=== PATIENT | female | born 1960 | race Two or more races ===

== ENCOUNTER 2022-01-22 12:06 | Emergency (ER) | payer OTHER ==
[~2022-01-22] VITALS: Ht 162.6 cm; Wt 90.8 kg
[2022-01-22] MEDS ORDERED: ACET-1158 PO (13:33)
[2022-01-22] MEDS ORDERED: CYCL-837 PO (13:33)
[2022-01-22] MEDS ORDERED: KETOROLAC TROMETH 60MG/2ML VIAL IM ONE (13:45)
[2022-01-22 14:00] VITALS: BP 111/72
== END 2022-01-22 14:09 | disposition home or self-care (01) ==
LOC: ER 12:06
DX: S16.1XXA Strain of muscle, fascia and tendon at neck level, initial encounter (principal); E78.5 Hyperlipidemia, unspecified; Z90.710 Acquired absence of both cervix and uterus; X58.XXXA Exposure to other specified factors, initial encounter; Y93.89 Activity, other specified; Y92.89 Other specified places as the place of occurrence of the external cause; Y99.8 Other external cause status
CPT/HCPCS: 72125; 96372; 99284; J1885

== ENCOUNTER 2022-06-27 08:46 | Emergency (ER) | payer OTHER ==
[~2022-06-27] VITALS: Ht 162.6 cm; Wt 86.5 kg
[~2022-06-27 08:46] MED LIST: ACET-1158 PO; CYCL-837 PO
[2022-06-27 08:56] VITALS: BP 146/71
[2022-06-27] MEDS ORDERED: KETOROLAC TROMETH 60MG/2ML VIAL IM ONE (09:30)
[2022-06-27] MEDS ORDERED: HYDR2.5C39 TOP (09:58)
[2022-06-27] MEDS ORDERED: IBUP800T27 PO (09:58)
[2022-06-27] MEDS ORDERED: DOCU-94 PO (09:58)
== END 2022-06-27 10:17 | disposition home or self-care (01) ==
LOC: ER 08:46
DX: K64.4 Residual hemorrhoidal skin tags (principal); E78.5 Hyperlipidemia, unspecified; Z90.710 Acquired absence of both cervix and uterus; Z79.899 Other long term (current) drug therapy
CPT/HCPCS: 96372; 99283; J1885

== ENCOUNTER 2022-07-10 17:47 | Inpatient (IN) | payer OTHER ==
[~2022-07-10] VITALS: Ht 162.6 cm; Wt 82.0 kg
[~2022-07-10 17:47] MED LIST changes: +DOCU-94 PO; +HYDR2.5C39 TOP; +IBUP800T27 PO
[2022-07-10 19:02] LABS: Basophils # (auto) 0 10 ^3/uL (0-0.2); Basophils % (auto) 0.4 % (0.0-2.0); Eosinophils # (auto) 0.4 10 ^3/uL (0-0.8); Eosinophils % (auto) 4.9 % (0.0-7.0); Hemoglobin 12.8 g/dL (12.2-16.2); Lymphocytes # (auto) 1.8 10 ^3/uL (0.4-5.4); Lymphocytes % (auto) 24.7 % (10.0-50.0); Mean Corpuscular Hemoglobin 29.8 pg (28.0-32.0); Mean Corpuscular Hgb Conc. 32.9 g/dL (32.0-36.0); Mean Corpuscular Volume 90.5 fL (80.0-100.0); Monocytes # (auto) 0.5 10 ^3/uL (0-1.3); Monocytes % (auto) 6.3 % (0.0-12.0); Neutrophils # (auto) 4.7 10 ^3/uL (1.6-8.6); Neutrophils % (auto) 63.7 % (37.0-80.0); Red Blood Cells 4.31 10^6/uL (4.0-5.20); Red Cell Distribution Width 15.4 % (11.8-14.3); White Blood Cell 7.3 10^3/uL (4.4-10.8)
[2022-07-10 19:22] LABS: Albumin 3.1 g/dL (3.4-5.0); Calcium 8.1 mg/dL (8.5-10.1); Potassium 3.8 mmol/L (3.5-5.1)
[2022-07-10 19:34] LABS: BUN/Creatinine Ratio 14.8; CRP High Sensitivity 5.71 mg/dL (< 0.3); Total Protein 6.8 g/dL (6.4-8.2)
[2022-07-10 20:24] LABS: Urine Bacteria FEW /hpf (None Seen); Urine Blood TRACE /uL (Negative); Urine Specific Gravity 1.024 (1.001-1.035); Urine WBC 3 /hpf (0 - 5)
[2022-07-10] MEDS ORDERED: IPRATROPIUM BROM 0.5 MG/2.5ML INH SOL NEB ONE (20:45)
[2022-07-10] MEDS ORDERED: DexAMETHasone SOD PHOS 10MG/1ML VIAL INJ IM ONE (20:45)
[2022-07-10] MEDS ORDERED: ALBUTEROL SULF 2.5 MG/0.5ML(0.5%) NEB SOLN NEB ONE (20:45)
[2022-07-10] MEDS ORDERED: ACETAMINOPHEN 325 MG TAB PO PRN (21:45)
[2022-07-10] MEDS ORDERED: NITROGLYCERIN 0.4 MG SL TAB SL PRN (21:45)
[2022-07-10] MEDS ORDERED: HYDROcodone-ACET 5/325MG TAB PO PRN (21:45)
[2022-07-10] MEDS ORDERED: MORPHINE SULFATE INJ 2 MG/ml SYRG IV PRN ×2 (21:45)
[2022-07-10] MEDS ORDERED: AZITHROMYCIN 500MG/ 250ML 250 ML IV ONE (22:00)
[2022-07-10] MEDS ORDERED: ALBUTEROL SULF 2.5 MG/0.5ML(0.5%) NEB SOLN NEB PRN (22:00)
[2022-07-10] MEDS ORDERED: cefTRIAXone 1GM/50ML D5W 50 ML IV ONE (22:00)
[2022-07-10] MEDS ORDERED: PANTOPRAZOLE 40 MG/10 ML VIAL INJ IV ONE (22:00)
[2022-07-10] MEDS ORDERED: IPRATROPIUM BROM 0.5 MG/2.5ML INH SOL NEB PRN (22:00)
[2022-07-10 22:08] VITALS: BP 159/81
[2022-07-10] MEDS ORDERED: IOHEXOL 350 MG/ML 100ML IJ ONE (22:10)
[2022-07-10 22:13] LABS: Amylase 37 U/L (25-115); Lipase 142 U/L (73-393)
[2022-07-10] MEDS ORDERED: hydrALAZINE HCL 20 MG/ML VL IV PRN (22:15)
[2022-07-10 22:18] LABS: Blood Alcohol < 3.0 mg/dL (0-5); Cholesterol 173 mg/dL (< 200); HDL Cholesterol 46 mg/dL (40-59); LDL Cholesterol 101 mg/dL (< 100); Triglycerides 151 mg/dL (< 150)
[2022-07-10 22:25] LABS: INR 0.97 (0.9-1.15); Partial Thromboplastin Time 31.3 sec (24.6-33.4)
[2022-07-10] MEDS ORDERED: DexAMETHasone SOD PHOS 10MG/1ML VIAL INJ IV ONE (23:15)
[2022-07-11] MEDS: ALBUTEROL SULF 2.5 MG/0.5ML(0.5%) NEB SOLN NEB SCH ×3 (00:27→11:44)
[2022-07-11] MEDS: IPRATROPIUM BROM 0.5 MG/2.5ML INH SOL NEB SCH ×3 (00:27→11:44)
[2022-07-11 05:31] LABS: Basophils # (auto) 0 10 ^3/uL (0-0.2); Basophils % (auto) 0.2 % (0.0-2.0); Eosinophils # (auto) 0 10 ^3/uL (0-0.8); Eosinophils % (auto) 0.4 % (0.0-7.0); Hematocrit 37.2 % (36.0-46.0); Hemoglobin 12.4 g/dL (12.2-16.2); Lymphocytes # (auto) 1.1 10 ^3/uL (0.4-5.4); Mean Corpuscular Hemoglobin 30.7 pg (28.0-32.0); Mean Corpuscular Hgb Conc. 33.4 g/dL (32.0-36.0); Mean Corpuscular Volume 92.1 fL (80.0-100.0); Monocytes # (auto) 0.1 10 ^3/uL (0-1.3); Monocytes % (auto) 1.8 % (0.0-12.0); Neutrophils # (auto) 5.7 10 ^3/uL (1.6-8.6); Neutrophils % (auto) 81.6 % (37.0-80.0); Nucleated Red Blood Cells % 0.1 %; Red Blood Cells 4.04 10^6/uL (4.0-5.20); Red Cell Distribution Width 15.6 % (11.8-14.3)
[2022-07-11 05:45] LABS: Potassium 3.7 mmol/L (3.5-5.1)
[2022-07-11 05:50] LABS: Albumin 3.1 g/dL (3.4-5.0); BUN/Creatinine Ratio 12.9; Bilirubin, Total 0.5 mg/dL (0.2-1.0); Calcium 8.6 mg/dL (8.5-10.1); Total Protein 7.7 g/dL (6.4-8.2)
[2022-07-11] MEDS ORDERED: cefTRIAXone 1GM/50ML D5W 50 ML IV SCH (09:00)
[2022-07-11 09:20] LABS: Hepatitis B Surface Antibody Negative (Negative)
[2022-07-11 09:58] LABS: Hepatitis A Total Antibody Negative (Negative)
[2022-07-11] MEDS ORDERED: PANTOPRAZOLE 40 MG/10 ML VIAL INJ IV SCH (10:00)
[2022-07-11] MEDS ORDERED: NICOTINE 7MG/24HR TOPICAL PATCH TD SCH (10:00)
[2022-07-11] MEDS ORDERED: ENOXAPARIN SOD 40 MG/0.4 ML SYRINGE SC SCH (10:00)
[2022-07-11] MEDS ORDERED: AZITHROMYCIN 500MG/ 250ML 250 ML IV SCH (10:00)
[2022-07-11 11:00] VITALS: BP 124/59
[2022-07-11 12:09] LABS: Hepatitis C Antibody Negative (Negative)
[2022-07-11] MEDS ORDERED: DOXY-332 PO (14:05)
[2022-07-11] MEDS ORDERED: ALBUAER3 IN (14:05)
== END 2022-07-11 14:41 | disposition home or self-care (01) | DRG 179 ==
LOC: ER 17:47 → TELE 21:50
PROVIDERS: ADMIT Registered Nurse; ATTEND Nurse Practitioner Acute Care
DX: J15.6 Pneumonia due to other Gram-negative bacteria (principal); E66.01 Morbid (severe) obesity due to excess calories; E78.5 Hyperlipidemia, unspecified; F17.200 Nicotine dependence, unspecified, uncomplicated; I10 Essential (primary) hypertension; R74.01 Elevation of levels of liver transaminase levels; R74.8 Abnormal levels of other serum enzymes; Z20.822 Contact with and (suspected) exposure to COVID-19; F10.90 Alcohol use, unspecified, uncomplicated; R79.89 Other specified abnormal findings of blood chemistry; J15.9 Unspecified bacterial pneumonia; R94.31 Abnormal electrocardiogram [ECG] [EKG]; Z90.710 Acquired absence of both cervix and uterus; Z71.6 Tobacco abuse counseling; Z71.3 Dietary counseling and surveillance; Z68.31 Body mass index [BMI] 31.0-31.9, adult
CPT/HCPCS: 36415; 71045; 71275; 76705; 80053; 80061; 80320; 81001; 82150; 82977; 83036; 83605; 83690; 83880; 84443; 84484; 85025; 85379; 85610; 85730; 86141; 86704; 86706; 86708; 86803; 87040; 87340; 87426; 87804; 93005; 93306; 94640; 96365; 96366; 96368; 96372; 96375; 96376; C9113; G0378; J0696; J1100

== ENCOUNTER 2024-11-08 06:53 | Outpatient (CLI) | payer OTHER ==
[~2024-11-08 06:53] MED LIST changes: -ACET-1158 PO; +ACET500T58 PO; +ALBUAER3 IN; +DOXY100C79 PO; +IBUP-1456 PO; -IBUP800T27 PO
[2024-11-08 07:40] LABS: Urine Protein, UAD Negative (Negative); Urine WBC Clumps PRESENT /hpf (None Seen)
[2024-11-08 07:43] LABS: Hematocrit 42.1 % (36.0-46.0); Hemoglobin 14.0 g/dL (12.2-16.2); Mean Corpuscular Hemoglobin 30.3 pg (28.0-32.0); Mean Corpuscular Volume 91.0 fL (80.0-100.0); Nucleated Red Blood Cells % 0.0 %
[2024-11-08 07:56] LABS: Alanine Aminotransferase 18 U/L (7-40); Albumin 4.3 g/dL (3.2-4.8); Alkaline Phosphatase 68 U/L (46-116); Anion Gap 10 (5-15); BUN/Creatinine Ratio 16.1 (10.0-20.0); Blood Urea Nitrogen 15 mg/dL (9-23); Calcium 10.0 mg/dL (8.7-10.4); Carbon Dioxide 27 mmol/L (20-31); Chloride 106 mmol/L (98-107); Glucose 97 mg/dL (74-106); Magnesium 1.9 mg/dL (1.6-2.6); Potassium 4.4 mmol/L (3.5-5.1); Sodium 143 mmol/L (136-145); Total Protein 7.2 g/dL (5.7-8.2)
[2024-11-08 07:57] LABS: Bilirubin, Total 0.6 mg/dL (0.2-1.0); HDL Cholesterol 50 mg/dL (40-59)
[2024-11-08 08:00] LABS: Cholesterol 222 mg/dL (< 200); Triglycerides 205 mg/dL (< 150)
[2024-11-08 08:47] LABS: Microalb/Creat Ratio, Urine 10.0
== END 2024-11-08 17:00 | disposition home or self-care (01) ==
LOC: LAB 06:53
PROVIDERS: ATTEND Internal Medicine
DX: E55.9 Vitamin D deficiency, unspecified (principal); R73.03 Prediabetes; Z00.00 Encounter for general adult medical examination without abnormal findings
CPT/HCPCS: 36415; 80053; 80061; 81001; 82043; 82306; 82570; 82607; 83036; 83735; 84443; 85025

== ENCOUNTER → 2024-11-12 | Outpatient (CLI) | payer OTHER ==
[2024-11-12 16:10] LABS: Urine Protein, UAD Negative (Negative)
== END | disposition home or self-care (01) ==
LOC: LAB 15:55
PROVIDERS: ATTEND Urology
DX: R32 Unspecified urinary incontinence (principal)
CPT/HCPCS: 81001; 87086

== ENCOUNTER 2025-01-25 06:54 | Outpatient (CLI) | payer OTHER ==
[2025-01-25 08:57] LABS: HDL Cholesterol 50 mg/dL (40-59)
[2025-01-25 08:58] LABS: Cholesterol 208 mg/dL (< 200); Triglycerides 165 mg/dL (< 150)
== END 2025-01-25 17:00 | disposition home or self-care (01) ==
LOC: LAB 06:54
PROVIDERS: ATTEND Internal Medicine
DX: E78.5 Hyperlipidemia, unspecified (principal); Z12.11 Encounter for screening for malignant neoplasm of colon
CPT/HCPCS: 36415; 80061; 82270

== ENCOUNTER 2025-04-12 09:07 | Inpatient (IN) | payer OTHER ==
[2025-04-11 12:44] LABS: Hematocrit 41.6 % (36.0-46.0); Hemoglobin 13.5 g/dL (12.2-16.2); Mean Corpuscular Hemoglobin 30.1 pg (28.0-32.0); Mean Corpuscular Volume 92.7 fL (80.0-100.0); Nucleated Red Blood Cells % 0.0 %
[2025-04-11 12:52] LABS: Urine Protein, UAD Negative (Negative)
[2025-04-11 12:55] LABS: Alanine Aminotransferase 22 U/L (7-40); Albumin 4.5 g/dL (3.2-4.8); Alkaline Phosphatase 75 U/L (46-116); Anion Gap 10 (5-15); BUN/Creatinine Ratio 14.7 (10.0-20.0); Bilirubin, Total 0.5 mg/dL (0.2-1.0); Blood Urea Nitrogen 14 mg/dL (9-23); Calcium 9.6 mg/dL (8.7-10.4); Carbon Dioxide 28 mmol/L (20-31); Chloride 103 mmol/L (98-107); Glucose 99 mg/dL (74-106); Potassium 4.0 mmol/L (3.5-5.1); Sodium 141 mmol/L (136-145); Total Protein 8.0 g/dL (5.7-8.2)
[2025-04-11 13:05] LABS: INR 1.03 (0.9-1.15); Partial Thromboplastin Time 30.8 SEC (24.5-34.5); Prothrombin Time 10.9 sec (9.3-11.8)
[~2025-04-12] VITALS: Ht 162.6 cm; Wt 88.9 kg
[~2025-04-12 09:07] MED LIST changes: -ACET500T58 PO; -ALBUAER3 IN; +ASPITAB37 PO; +ATOR10TA52 PO; +CHOL1TAB28 PO; -CYCL-837 PO; -DOCU-94 PO; -DOXY100C79 PO; -HYDR2.5C39 TOP; -IBUP-1456 PO; +KETAMINE 50mg/ML 1ml syringe ONE; +LIDOCAINE 1% INJ PF 5ML AMP ONE; +MEPERIDINE HCL (25 MG/ML) 1ML VIAL ONE; +MIDAZOLAM HCL 2MG/2ML 2ml VIAL (1mg/ml) ONE; +OME20T PO; +ONDANSETRON HCL 4 MG/2 ML VIAL ONE; +PROPOFOL 10 MG/ML 20 ML IV ONE; +SODIUM CHLORIDE LOCK 10 ML ONE; +fentaNYL CITRATE 100 MCG/2 ML VL ONE
[2025-04-12] MEDS ORDERED: METOCLOPRAMIDE HCL 5MG/ml INJ 2ml VIAL IV PRN (09:30)
[2025-04-12] MEDS: KETOROLAC TROMETH 30 MG/ML 1ML VIAL IV ONE (09:30)
[2025-04-12] MEDS ORDERED: HYDROmorphone HCL 2 MG/ML VL/or syr IV PRN ×2 (09:30)
[2025-04-12] MEDS ORDERED: MORPHINE SULFATE 4 MG/ML SYR/VIAL IV PRN (09:30)
[2025-04-12] MEDS ORDERED: CONJ ESTROGENS 0.625MG/GM VAG CRM 30GM PV ONE (09:34)
[2025-04-12] MEDS ORDERED: NEOMYCIN-BACITRACIN-POLYM 15GM TOP OINT TOP ONE (09:34)
[2025-04-12] MEDS: CIPROFLOXACIN 400MG/200ML 200 ML IV ONE (10:05)
[2025-04-12] MEDS ORDERED: MORPHINE SULFATE INJ 2 MG/ml SYRG IV PRN ×3 (10:12→15:00)
[2025-04-12] MEDS: ceFAZolin 1GM VL ONE (10:40)
[2025-04-12] MEDS: LIDOCAINE W/ EPINEPHRINE 1% 20ML VIAL ONE (10:45)
[2025-04-12 11:08] VITALS: O2SAT 99
[2025-04-12] MEDS ORDERED: NITROGLYCERIN 0.4 MG SL TAB SL PRN (11:45)
--- NOTE | 2025-04-12 11:49 | DVHNC2 ---
Procedure - OPERATIVE REPORT Pre-op. Diagnosis: Stress urinary incontinence Post-op. Diagnosis: Same as pre-op diagnosis Operation: Sling operation for incontinence (25811) Cystoscopy (55981) Anesthesia: General Indications: Patient has symptomatic stress urinary incontinence and has elected to proceed with Sling operation.All questions were encouraged answered. She elected to proceed. Details of Procedure: The patient was brought to the operating room and placed upon the table. After induction of anesthesia she was placed in the lithotomy position. Her genitalia and perineal regions were shaved, prepped, and draped in sans surgical fashion. A Gayle catheter was inserted. A Enrike retractor was placed. Blue hooks were used to open up the vaginal canal. We used 1% lidocaine with epinephrine in order to hydro-dissect the mucosal layer away from the above structures which include urethra and the bladder.Next, I located and made a midurethral vaginal incision of approximately 1.5-2.0 cm and bluntly dissected bilaterally up to the interior portion of the inferior pubic ramus. The notch along the internal edge of ischiopubic ramus where the adductor longus tendon and the inferior pubic ramus converged was palpated. Integrated self- fixating tips are placed using the VSS Monitoring needle delivery system at the posterior surface of the ischiopubic ramus to align the sling appropriately in the midurethral level. Sling mesh is secured tension free with 2-0 Vicryl sutu res. Needle device is removed, vaginal incision is closed with 2-0 Vicryl suture.Cystoscopy is now performed to ensure that no injury to the bladder was incurred. Vaginal packing is placed with antibiotic and Estrace cream. Gayle catheter remains in place. All instrument counts and sponge counts were correct at the end of the operation. Patient was taken to in stable condition. Specimens: None Complications: None Findings: EBL: SARA Laguna MD Apr 12, 2025 11:49
[2025-04-12] MEDS ORDERED: ONDANSETRON HCL 4 MG/2 ML VIAL IV PRN (15:00)
--- NOTE | 2025-04-12 15:04 | DVHHP2 ---
Review of Systems Allergies: Coded Allergies: NO KNOWN ALLERGIES (Unverified , 01/22/22) Medications Current Medications Medications Dose Ordered Sig/Della Route Start Time Stop Time Status Last Admin Dose Admin Nitroglycerin 0.4 mg Q5MINP PRN SL 04/12/25 11:45 Morphine Sulfate 2 mg Q30M PRN IV 04/12/25 11:45 Exam Vital Signs Vital Signs Date Time Temp Pulse Resp B/P (MAP) Pulse Ox O2 Delivery O2 Flow Rate FiO2 04/12/25 13:15 73 16 127/70 (89) 04/12/25 13:08 99 04/12/25 11:08 Mask 8.0 04/12/25 11:08 97.9 97.9 04/12/25 11:08 99 Labs/Xrays Labs Test 04/11/25 12:10 Range/Units White Blood Count 8.2 4.4-10.8 10^3/uL Red Blood Count 4.49 4.0-5.20 10^6/uL Hemoglobin 13.5 12.2-16.2 g/dL Hematocrit 41.6 36.0-46.0 % Mean Corpuscular Volume 92.7 80.0-100.0 fL Mean Corpuscular Hemoglobin 30.1 28.0-32.0 pg Mean Corpuscular Hemoglobin Concent 32.5 32.0-36.0 g/dL Red Cell Distribution Width 14.3 11.8-14.3 % Platelet Count 341 140-450 10^3/uL Mean Platelet Volume 8.1 6.9-10.8 fL Neutrophils (%) (Auto) 58.1 37.0-80.0 % Lymphocytes (%) (Auto) 29.5 10.0-50.0 % Monocytes (%) (Auto) 7.0 0.0-12.0 % Eosinophils (%) (Auto) 4.5 0.0-7.0 % Basophils (%) (Auto) 0.9 0.0-2.0 % Neutrophils # (Auto) 4.8 1.6-8.6 10 ^3/uL Lymphocytes # (Auto) 2.4 0.4-5.4 10 ^3/uL Monocytes # (Auto) 0.6 0-1.3 10 ^3/uL Eosinophils # (Auto) 0.4 0-0.8 10 ^3/uL Basophils # (Auto) 0.1 0-0.2 10 ^3/uL Nucleated Red Blood Cells 0.0 % Prothrombin Time 10.9 9.3-11.8 sec Prothrombin Time INR 1.03 0.9-1.15 Activated Partial Thromboplast Time 30.8 24.5-34.5 SEC Urine Color Light-yellow Yellow Urine Clarity Clear Clear Urine pH 5.5 5.0-9.0 Urine Specific [place] 1.014 1.001-1.035 Urine Protein Negative Negative Urine Ketones Negative Negative Urine Blood Negative Negative /uL Urine Nitrite Negative Negative Urine Bilirubin Negative Negative Urine Urobilinogen Normal Negative mg/dL Urine Leukocyte Esterase Trace Negative /uL Urine RBC 1 0 - 4 /hpf Urine Microscopic WBC 21 H 0-5 /HPF Urine Squamous Epithelial Cells Few <5 /hpf Urine Bacteria Mod H None Seen /hpf Urine Mucus Few None Seen Urine Glucose Normal Normal mg/dL Sodium Level 141 136-145 mmol/L Potassium Level 4.0 3.5-5.1 mmol/L Chloride Level 103 98-107 mmol/L Carbon Dioxide Level 28 20-31 mmol/L Anion Gap 10 5-15 Blood Urea Nitrogen 14 9-23 mg/dL Creatinine 0.95 0.550-1.02 mg/dL Glomerular Filtration Rate Calc 66 >90 mL/min BUN/Creatinine Ratio 14.7 10.0-20.0 Serum Glucose 99 74-106 mg/dL Calcium Level 9.6 8.7-10.4 mg/dL Total Bilirubin 0.5 0.2-1.0 mg/dL Aspartate Amino Transferase (AST) 22 13-40 U/L Alanine Aminotransferase (ALT) 22 7-40 U/L Alkaline Phosphatase 75 46-116 U/L Total Protein 8.0 5.7-8.2 g/dL Albumin 4.5 3.2-4.8 g/dL Microbiology Date/Time Source Procedure Growth Status 04/11/25 12:10 Voided Urine Urine Culture - Preliminary Resulted SEPSIS Sepsis Screen Physician Orders Oxygen By Face Mask (04/12/25 09:27) Search Advertising Strategist (04/12/25 09:27) Notify Anesth. For Changes: (04/12/25 09:27) Pulse Ox Assessment (04/12/25 09:27) Bear Hugger For Temp <94.5f (04/12/25 09:27) Continue Present Iv (04/12/25 09:27) Discharge To Room Per Criteria (04/12/25 09:27) Admit (04/12/25 11:41) Nitroglycerin Sublingual (Ntrostat Subli (04/12/25 11:45) Morphine Sulfate Injection (04/12/25 11:45) Stat Ekg For Chest Pain (04/12/25 11:41) Notify Md Of Changes From Base (04/12/25 11:41) Cracking And Fanning Machine Operator For 24 Hours (04/12/25 11:41) Emergency Dysrhythmia Protocol (04/12/25 11:41) Rhythm Strips Once Every Shift (04/12/25 11:41) Oxygen By Nasal Cannula (04/12/25 11:41) Regular Diet (04/12/25 Lunch) * Hospitalist Consult (04/12/25 ) Morphine Sulfate Injection (04/12/25 15:00) Hydrocodone-Acet 5/325mg Tab ([place] 5/32 (04/12/25 15:00) Vital Signs Date Time Temp Pulse Resp B/P (MAP) Pulse Ox O2 Delivery O2 Flow Rate FiO2 04/12/25 13:15 73 16 127/70 (89) 04/12/25 13:08 72 14 140/76 (97) 99 04/12/25 12:38 64 11 152/60 (90) 100 04/12/25 12:08 66 12 134/71 (92) 95 04/12/25 11:53 70 15 150/66 (94) 96 04/12/25 11:38 76 14 140/74 (96) 98 04/12/25 11:23 73 12 136/77 (96) 100 04/12/25 11:18 75 12 112/73 (86) 100 04/12/25 11:13 79 12 106/65 (79) 99 04/12/25 11:08 99 Mask 8.0 04/12/25 11:08 97.9 87 12 97/54 (68) 94 97.9 04/12/25 11:08 Mask 8.0 99 04/12/25 09:11 97.3 61 14 133/77 (95) 97 97.3 Medications Medications Dose Ordered Sig/Della Route Start Time Stop Time Status Last Admin Dose Admin Cefazolin Sodium 1 gm STK-MED ONCE .ROUTE 04/12/25 09:34 04/12/25 09:34 DC 04/12/25 10:40 1 GM Ciprofloxacin 200 ml @ ud STK-MED ONCE IV 04/12/25 08:06 04/12/25 08:06 DC 04/12/25 10:05 Lidocaine/ Epinephrine 20 ml STK-MED ONCE .ROUTE 04/12/25 09:34 04/12/25 09:34 DC 04/12/25 10:45 10 ML Assessment/Plan Assessment/Plan SEE DICTATED NOTE Plan discussed with: Patient My Orders Orders - DAVE LEMOS MD Procedure Category Date Status Time Morphine Sulfate PHA 04/12/25 Verified Injection 15:00 Hydrocodone-Acet PHA 04/12/25 Verified 5/325mg Tab ([place] 15:00 Date of Service: Apr 12, 2025 Billing Provider: DAVE LEMOS MD Common Visit Codes: 89614-GFPFUOL INP/OBS CARE (HIGH) Secondary Visit Codes: 50152-[id number] CARE PLAN 30 MINUTES DAVE LEMOS MD Apr 12, 2025 15:04
--- NOTE | 2025-04-12 15:16 | DVHHP ---
ADMIT DATE: 04/12/2025 HISTORY OF PRESENT ILLNESS: The patient is a 64-year-old lady who is admitted after she underwent surgery with a vaginal sling operation for stress incontinence. The patient at this time complains of pain in the perineal area. No chest pain, no shortness of breath, no nausea or vomiting. REVIEW OF SYSTEMS: Review of rest of the systems otherwise currently negative. PAST MEDICAL HISTORY: Significant for hyperlipidemia and GERD. SOCIAL HISTORY: She denies smoking, although she does vape. Denies alcohol. Lives with her daughter. MEDICATIONS: Include Lipitor, omeprazole, aspirin. ALLERGIES: No known drug allergies. FAMILY HISTORY: Negative. PHYSICAL EXAMINATION: GENERAL: The patient is awake, alert. VITAL SIGNS: Temperature of 97.9, pulse of 66 per minute, blood pressure 134/71. SHEENT: Unremarkable. NECK: There is no JVD. No pedal edema. LUNGS: Equal bilaterally. No added sounds. CARDIOVASCULAR: S1 and S2 is regular. No murmurs. ABDOMEN: Soft. There is no organomegaly. NEUROLOGIC: Nonfocal. MUSCULOSKELETAL: Normal. ASSESSMENT AND PLAN: * Hyperlipidemia. * Obesity. * Gastroesophageal reflux disease. * Status post vaginal sling operation for stress incontinence for which the patient will be placed on pain medications and intravenous fluids. ADVANCED CARE PLANNING: The patient is a full code-TIME SPENT: 17 minutes. MD SHENA Morales/GERRY TID: [id number] RECEIPT: [id number] MTD
[2025-04-12] MEDS: SODIUM CHLORIDE 0.9% 1,000 ML IV SCH (15:57)
[2025-04-12] MEDS: MORPHINE SULFATE 4 MG/ML SYR/VIAL IV PRN (15:58)
[2025-04-12 17:00] VITALS: BP 127/54; PULSE 65; RESP 18; TEMP 97.9; O2SAT 95
[2025-04-12 20:00] VITALS: PULSE 80; RESP 18; O2SAT 96
[2025-04-12 21:00] VITALS: BP 140/72; PULSE 72; RESP 18; TEMP 97.5; O2SAT 96
[2025-04-13 01:00] VITALS: BP 126/74; PULSE 91; RESP 18; TEMP 98.4; O2SAT 95
[2025-04-13 05:00] VITALS: BP 135/78; PULSE 59; RESP 17; TEMP 97.4; O2SAT 99
[2025-04-13] MEDS: HYDROcodone-ACET 5/325MG TAB PO PRN (05:39)
[2025-04-13] MEDS: PANTOPRAZOLE 40 MG TAB PO SCH (05:39)
[2025-04-13 07:01] LABS: Hematocrit 34.1 % (36.0-46.0); Hemoglobin 11.2 g/dL (12.2-16.2); Mean Corpuscular Hemoglobin 30.5 pg (28.0-32.0); Mean Corpuscular Volume 92.9 fL (80.0-100.0); Nucleated Red Blood Cells % 0.1 %
[2025-04-13 07:22] LABS: Alanine Aminotransferase 18 U/L (7-40); Alkaline Phosphatase 64 U/L (46-116); Anion Gap 11 (5-15); BUN/Creatinine Ratio 12.4 (10.0-20.0); Blood Urea Nitrogen 11 mg/dL (9-23); Carbon Dioxide 24 mmol/L (20-31); Chloride 105 mmol/L (98-107); Glucose 97 mg/dL (74-106); Potassium 3.7 mmol/L (3.5-5.1); Sodium 140 mmol/L (136-145); Total Protein 6.3 g/dL (5.7-8.2)
[2025-04-13 07:23] LABS: Albumin 3.6 g/dL (3.2-4.8); Bilirubin, Total 0.5 mg/dL (0.2-1.0)
[2025-04-13 07:26] LABS: Calcium 8.2 mg/dL (8.7-10.4)
[2025-04-13 07:30] VITALS: PULSE 73; RESP 16; O2SAT 94
[2025-04-13 08:38] VITALS: BP 132/76; PULSE 73; RESP 16; TEMP 98.3; O2SAT 94
--- NOTE | 2025-04-13 10:54 | DVHPN2 ---
Progress Note - Dictate Date Seen: Apr 13, 2025 Has the PT tested + for MRSA If YES, has PT been informed?: No Medical Necessity Reason Pt with a Central, PICC or Fol: Yes The following are medically ne: Gayle Catheter Medical Necessity Reason POD#1 s/p Sling operation Subjective Patient requested overnight admission for management of vaginal packing and Gayle catheter vital signs Vital Sign Date Time Temp Pulse Resp B/P (MAP) Pulse Ox O2 Delivery O2 Flow Rate FiO2 04/13/25 08:38 98.3 73 16 132/76 (94) 94 98.3 04/12/25 20:00 Room Air* 0 21 Total Intake and Output 04/12/25 04/12/25 04/13/25 15:00 23:00 07:00 Intake Total 300 ml 480 ml 2363 ml Output Total 300 ml 650 ml Balance 300 ml 180 ml 1713 ml medications Current Medications Medications Dose Ordered Sig/Della Route Start Time Stop Time Status Last Admin Dose Admin Nitroglycerin 0.4 mg Q5MINP PRN SL 04/12/25 11:45 Morphine Sulfate 2 mg Q30M PRN IV 04/12/25 11:45 Morphine Sulfate 2 mg Q4HPRN PRN IV 04/12/25 15:00 Cancel Acetaminophen/ Hydrocodone Bitart 1 tab Q6HPRN PRN PO 04/12/25 15:00 04/13/25 05:39 1 TAB Acetaminophen 650 mg Q6HP PRN PO 04/12/25 15:00 Ondansetron HCl 4 mg Q6HPRN PRN IV 04/12/25 15:00 Pantoprazole Sodium 40 mg DAILY@0600 PO 04/13/25 06:00 04/13/25 05:39 40 MG Sodium Chloride 1,000 ml @ 75 mls/hr [id number] IV 04/12/25 15:00 04/13/25 05:40 75 MLS/HR Morphine Sulfate 2 mg Q4HPRN PRN IV 04/12/25 15:45 04/12/25 21:31 2 MG laboratory and microbiology Laboratory Tests 04/13/25 05:35 Test 04/13/25 05:35 Range/Units Serum Glucose 97 74-106 mg/dL Assessment/Plan JADEN S/p Sling operation. D/c Gayle d/c vaginal packing Discharge home when stable F/u 2 weeks Plan discussed with: Patient, Other SARA MIGUEL MD Apr 13, 2025 10:54
--- NOTE | 2025-04-13 11:07 | DVHDS2 ---
Discharge Summary Date of Admission Apr 12, 2025 at 11:41 Date of Discharge: Apr 13, 2025 Labs/Diagnostic Data: Laboratory Results Test 04/13/25 05:35 04/11/25 12:10 White Blood Count 9.8 10^3/uL (4.4-10.8) Red Blood Count 3.66 10^6/uL (4.0-5.20) Hemoglobin 11.2 g/dL (12.2-16.2) Hematocrit 34.1 % (36.0-46.0) Mean Corpuscular Volume 92.9 fL (80.0-100.0) Mean Corpuscular Hemoglobin 30.5 pg (28.0-32.0) Mean Corpuscular Hemoglobin Concent 32.9 g/dL (32.0-36.0) Red Cell Distribution Width 14.1 % (11.8-14.3) Platelet Count 276 10^3/uL (140-450) Mean Platelet Volume 8.2 fL (6.9-10.8) Neutrophils (%) (Auto) 62.2 % (37.0-80.0) Lymphocytes (%) (Auto) 26.9 % (10.0-50.0) Monocytes (%) (Auto) 7.1 % (0.0-12.0) Eosinophils (%) (Auto) 3.2 % (0.0-7.0) Basophils (%) (Auto) 0.6 % (0.0-2.0) Neutrophils # (Auto) 6.1 10 ^3/uL (1.6-8.6) Lymphocytes # (Auto) 2.6 10 ^3/uL (0.4-5.4) Monocytes # (Auto) 0.7 10 ^3/uL (0-1.3) Eosinophils # (Auto) 0.3 10 ^3/uL (0-0.8) Basophils # (Auto) 0.1 10 ^3/uL (0-0.2) Nucleated Red Blood Cells 0.1 % Sodium Level 140 mmol/L (136-145) Potassium Level 3.7 mmol/L (3.5-5.1) Chloride Level 105 mmol/L (98-107) Carbon Dioxide Level 24 mmol/L (20-31) Anion Gap 11 (5-15) Blood Urea Nitrogen 11 mg/dL (9-23) Creatinine 0.89 mg/dL (0.550-1.02) Glomerular Filtration Rate Calc 71 mL/min (>90) BUN/Creatinine Ratio 12.4 (10.0-20.0) Serum Glucose 97 mg/dL (74-106) Calcium Level 8.2 mg/dL (8.7-10.4) Total Bilirubin 0.5 mg/dL (0.2-1.0) Aspartate Amino Transferase (AST) 20 U/L (13-40) Alanine Aminotransferase (ALT) 18 U/L (7-40) Alkaline Phosphatase 64 U/L (46-116) Total Protein 6.3 g/dL (5.7-8.2) Albumin 3.6 g/dL (3.2-4.8) Prothrombin Time 10.9 sec (9.3-11.8) Prothrombin Time INR 1.03 (0.9-1.15) Activated Partial Thromboplast Time 30.8 SEC (24.5-34.5) Urine Color Light-yellow (Yellow) Urine Clarity Clear (Clear) Urine pH 5.5 (5.0-9.0) Urine Specific [place] 1.014 (1.001-1.035) Urine Protein Negative (Negative) Urine Ketones Negative (Negative) Urine Blood Negative /uL (Negative) Urine Nitrite Negative (Negative) Urine Bilirubin Negative (Negative) Urine Urobilinogen Normal mg/dL (Negative) Urine Leukocyte Esterase Trace /uL (Negative) Urine RBC 1 /hpf (0 - 4) Urine Microscopic WBC 21 /HPF (0-5) Urine Squamous Epithelial Cells Few /hpf (<5) Urine Bacteria Mod /hpf (None Seen) Urine Mucus Few (None Seen) Urine Glucose Normal mg/dL (Normal) Other Laboratory Tests 04/13/25 05:35 Brief Hx & Hospital Course: see dictated note Condition at Discharge: Fair Final Diagnosis/Problems List sling operation Discharge Disposition: Home Discharge Instruct/Medications Diet: Cardiac 2g Na,low cholest Activity: No Restrictions, As Tolerated Follow Up/Referral: fu with dr Flores, pcp Medications: dc zarate/vaginal packing script to pharmacy Scheduled Udhrhoa-Einsmutfaybrf-Zrqrewel (Excedrin Extra Strength), 1 GEL PO PRN, (Reported) Atorvastatin Calcium (Atorvastatin Calcium), 10 MG PO DAILY, (Reported) Cholecalciferol (D3 2000), Unknown Dose PO DAILY, (Reported) Omeprazole (Omeprazole), 20 MG PO DAILY, (Reported) Discharge Statement: "Patient was advised to return to the ER or call 911 if any headaches, dizziness, shortness of breath, chest pain, abdominal pain, bleeding, fevers, or worsening of medical condition. Patient was counseled about treatment plan, medications, possible side effects, patientverbalized understanding. All questions were answered to the best of my ability. This discharge took greater then 30 minutes in planning, reviewing documentation, counseling the patient, and discussing with other team members." ASSESSMENT ASSESSMENT Assessment sling operation Date of Service: Apr 13, 2025 Billing Provider: DAVE LEMOS MD Common Visit Codes: 12464-SXU/OBS DISCH DAY >30min DAVE LEMOS MD Apr 13, 2025 11:07
[2025-04-13] MEDS ORDERED: HYDR1TAB97 PO (11:09)
[2025-04-13] MEDS ORDERED: CEPH500C PO (11:09)
[2025-04-13 12:55] VITALS: BP 144/77; PULSE 79; RESP 16; TEMP 98.4; O2SAT 96
[2025-04-13 17:00] VITALS: BP 140/70; PULSE 68; RESP 16; TEMP 98.6; O2SAT 97
[2025-04-13] MEDS: ACETAMINOPHEN 325 MG TAB PO PRN (17:41)
--- NOTE | 2025-04-13 19:20 | DVHDS ---
DATE OF DISCHARGE: 04/13/2025 DATE OF DISCHARGE: 04/13/2025 HISTORY OF PRESENT ILLNESS: The patient is a 64-year-old lady who was admitted after she underwent a sling operation for stress incontinence, and has previous history of hyperlipidemia and GERD. HOSPITAL COURSE: The patient did well post procedure. Her hemoglobin is stable. The patient will now be discharged home as per my discussion with Dr. Flores after the vaginal packing and Gayle catheter is removed. She will be discharged on Keflex along with [place] p.r.n. for pain. She will follow up with her primary as well as Dr. Flores. FINAL DIAGNOSES: - Hyperlipidemia. - GERD. - Obesity. - Status post sling operation for stress incontinence. Time spent in discharge planning and review of plan with the patient, color consultant, and nursing was 39 minutes. MD SHENA Morales/RAYMOND TID: [id number] RECEIPT: [id number] MTD
== END 2025-04-13 17:00 | disposition home or self-care (01) | DRG 748 ==
LOC: SUR 09:07 → OVERFLOW 11:41 → CENTRAL 13:24
PROVIDERS: ADMIT Internal Medicine; ATTEND Internal Medicine
PROC: 0TSD0ZZ Reposition Urethra, Open Approach (ICD-10-PCS; principal; 2025-04-12 09:55)
DX: N39.3 Stress incontinence (female) (male) (principal); E66.9 Obesity, unspecified; E78.5 Hyperlipidemia, unspecified; K21.9 Gastro-esophageal reflux disease without esophagitis; Z68.33 Body mass index [BMI] 33.0-33.9, adult; Z79.899 Other long term (current) drug therapy
CPT/HCPCS: 36415; 80053; 81001; 85025; 85610; 85730; 87086; C1771; G0378; J0690; J2250; J2405; J2704